=== PATIENT | female | born 1950 | race Two or more races ===

== ENCOUNTER 2023-06-23 13:04 | Emergency (ER) | payer BC ==
[2023-06-23 13:13] VITALS: BMI 28.1
[2023-06-23] MEDS ORDERED: TETRACAINE 0.5% OPHTH SOLN 2 ML BOTTLE ONE (13:49)
[2023-06-23] MEDS ORDERED: METOCLOPRAMIDE HCL INJECTION 10 MG/2 ML VIAL ONE (14:10)
[2023-06-23] MEDS ORDERED: ACETAMINOPHEN INJECTION 100 ML IVPB ONE (14:11)
[2023-06-23 14:25] LABS: BASO % 0.5 % (0-2.0); EOS % 9.2 % (0-4.5); HEMATOCRIT 36.9 % (32.4-45.2); HEMOGLOBIN 12.8 GM/dL (10.7-15.3); LYMPH % 28.4 % (8-40); MCH 30.6 pg (25.7-33.7); MCHC 34.7 g/dl (32.0-36.0); MEAN CELL VOLUME 88.2 fl (80-96); MEAN PLT VOLUME 7.4 fl (7.5-11.1); MONO % 6.9 % (3.8-10.2); PLATELET COUNT 307 10^3/uL (134-434); RBC 4.19 M/mm3 (3.60-5.2); RDW 13.6 % (11.6-15.6)
[2023-06-23 14:26] LABS: INR 0.97 (0.83-1.09)
[2023-06-23 14:28] LABS: ACTIVATED PTT 40.6 SECONDS (25.2-36.5)
[2023-06-23] MEDS: METOCLOPRAMIDE HCL INJECTION 10 MG/2 ML VIAL IVPUSH ONE (14:35)
[2023-06-23] MEDS: ACETAMINOPHEN 1000 MG/100 ML BAG IVPB ONE (14:35)
[2023-06-23] MEDS: TETRACAINE 0.5% HCL 0.6ML DROPPER.BOTTLE OU ONE (14:45)
[2023-06-23 14:49] LABS: POTASSIUM 4.1 mmol/L (3.5-5.1)
[2023-06-23 14:51] LABS: ALBUMIN 3.9 g/dl (3.4-5.0); BLOOD UREA NITROGEN 12.7 mg/dL (7-18); CALCIUM 9.5 mg/dL (8.5-10.1)
[2023-06-23 14:54] LABS: CREATININE 0.7 mg/dL (0.55-1.3)
[2023-06-23 14:56] LABS: BILIRUBIN,TOTAL 0.3 mg/dL (0.2-1); TOT PROT 7.4 g/dl (6.4-8.2)
[2023-06-23 16:32] VITALS: RESP 19
[2023-06-23 17:59] VITALS: TEMP 98.2
[2023-06-23 19:35] VITALS: BP 154/53; PULSE 61
== END 2023-06-23 19:36 | disposition short-term general hospital (02) ==
LOC: JER 13:04
PROC: 3E033NZ Introduction of Analgesics, Hypnotics, Sedatives into Peripheral Vein, Percutaneous Approach (ICD-10-PCS; principal; 2023-06-23)
PROC: 3E033GC Introduction of Other Therapeutic Substance into Peripheral Vein, Percutaneous Approach (ICD-10-PCS; 2023-06-23)
DX: H57.13 Ocular pain, bilateral (principal); R51.9 Headache, unspecified; H40.9 Unspecified glaucoma
CPT/HCPCS: 36415; 70450-TC; 80053; 85025; 85610; 85730; 99285-25; J0131